=== PATIENT | female | born 1970 | race Asian ===

== ENCOUNTER → 2022-11-13 14:15 | Outpatient (CLI) | payer OTHER, SELFPAY ==
--- NOTE | ~2022-11-13 | XR_ITS ---
EXAMINATION:XR cervical spine 4-5V DATE: 11/13/2022 15:12 INDICATION: Arthropathy, cervical TECHNIQUE: AP, lateral neutral, flexion, extension, and odontoid views of the cervical spine are prov ided. COMPARISON: None FINDINGS: There are 2 mm of retrolisthesis of C4 on C5 and C5 on C6 in extension. The alignment is no rmal in neutral and flexion. The odontoid process is intact. No fracture is identified. The vertebral body heights are maintained. There is mild loss of intervertebral disc space height at C5-6. Small d egenerative osteophytes project from the anterior endplates of multiple vertebral bodies. 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 Prevertebral soft tissues are normal. IMPRESSION: 1. Mild cervical spondylosis without acute findings. Reviewed, dictated and finalized at location B.
== END ==
PROVIDERS: PCP Internal Medicine; Visit Provider Nurse Practitioner Family
DX: M12.88 Other specific arthropathies, not elsewhere classified, other specified site (principal); M47.892 Other spondylosis, cervical region
CPT/HCPCS: 72050